=== PATIENT | male | born 1965 | race Caucasian/White ===

== ENCOUNTER 2021-05-06 18:38 | Observation (INO) ==
[2021-05-06 19:39] LABS: Mean Corpuscular Hgb Conc 34.6 g/dL (32-36); Mean Platelet Volume 10.2 fL (7.4-10.4); Platelet Count 196 K/uL (130-400)
[2021-05-06 19:41] LABS: Appearance Urine Clear (Clear); Bilirubin Urine Negative (Negative); Blood Urine Negative (Negative); Color Urine Yellow; Glucose Urine UA Negative (Negative); Ketones Urine 1+ (Negative); Leukocyte Esterase Urine Negative (Negative); Nitrite Urine Negative (Negative); Protein Urine Negative (Negative); Specific Gravity Urine 1.022 (1.000-1.030); Urobilinogen Urine Negative (Negative); pH Urine 5.5 (4.5-7.5)
[2021-05-06 19:57] LABS: Basophils # (auto) 0.02 K/uL (0-0.2); Basophils % (auto) 0.1 %; Eosinophils # (auto) 0.06 K/uL (0-0.5); Eosinophils % (auto) 0.4 %; Hematocrit (blood only) 45.1 % (42-52); Hemoglobin 15.6 g/dL (14.0-18.0); Immature Granulocytes # (auto) 0.03 K/uL (0.00-0.02); Immature Granulocytes % (auto) 0.2 %; Lymphocytes # (auto) 1.24 K/uL (1.2-3.4); Lymphocytes % (auto) 8.7 %; Mean Corpuscular Hemoglobin 30.7 pg (25-34); Mean Corpuscular Volume 88.8 fL (80-100); Monocytes # (auto) 0.83 K/uL (0.11-0.59); Monocytes % (auto) 5.9 %; Neutrophils % (auto) 84.7 %; RDW Coefficient of Variation 13.1 % (11.5-14.5); RDW Standard Deviation 42.7 fL (36.4-46.3); Red Blood Count 5.08 M/uL (4.7-6.1); White Blood Count 14.18 K/uL (4.8-10.8)
[2021-05-06 19:59] LABS: Albumin Globulin Ratio 1.5 (0.9-2); Albumin Level 4.3 gm/dl (3.4-5.0); BUN Creatinine Ratio 12.5 (10-20); Bilirubin,Total 0.5 mg/dl (0.2-1.0); Calcium 9.4 mg/dl (8.5-10.1); Creatinine Clr Calc Pharmacy 77.7 ml/min; Est GFR (African American) 77.9 ml/min; Est GFR (Non-African American) 67.2 ml/min; Globulin 2.9 gm/dl (2.5-4.0); Potassium 4.3 mmol/L (3.5-5.1); Total Protein 7.2 gm/dl (6.0-8.3)
[2021-05-06] MEDS ORDERED: ONDANSETRON INJ 2 MG/ML 2 ML VIAL IV STA ×2 (20:25→20:34)
[2021-05-06] MEDS ORDERED: KETOROLAC TROMETHAMINE 15 MG/ML VIAL IV STA (20:25)
[2021-05-06] MEDS ORDERED: OPTIRAY 320 100ml IV ONE (21:01)
--- NOTE | 2021-05-06 21:20 | CT Scan Report ---
CT abd pelvis IV con only CLINICAL HISTORY: rlq pain ro appy TECHNIQUE: Helical axial images of the abdomen and pelvis were obtained and displayed. Automated dose lowering techniques and/or adjustment according to patient size were utilized for this exam. This e xam was performed with intravenous contrast. COMPARISON: None available at the time of this dictation. FINDINGS: Lower chest: Bibasilar atelectasis versus scarring is seen. Liver: Subcentimeter hypodensities in the liver are too small to characterize. Gallbladder and biliary tree: No calcified gallstones. Normal caliber wall. No intra- or extrahepatic biliary ductal dilation. Pancreas: Unremarkable, no focal lesions. Spleen: Unremarkable. Adrenals: Unremarkable. Kidneys and ureters: A 22 mm cyst seen on the left. Bladder: Unremarkable. Reproductive organs: Prostatomegaly is seen. Bowel: The appendix is dilated measuring 11 mm in diameter. There is mild surrounding fat stranding. No evidence of abscess or perforation is seen. There is a small hiatal hernia. Lymph nodes Retroperitoneal: Unremarkable. Mesenteric: Unremarkable. Pelvic: Unremarkable. Peritoneum: Normal. Vessels: Unremarkable. Abdominal wall: Unremarkable. Bones: Unremarkable. IMPRESSION: Findings are compatible with acute appendicitis without evidence of abscess or perforation. ACT 112: Negative or not required by law. Electronically signed by: Amando Juárez M.D. 05/06/2021 9:19 PM
[2021-05-06] MEDS ORDERED: ACETAMINOPHEN 1,000 MG/100 ML VIAL IV STA (21:25)
[2021-05-06] MEDS ORDERED: ERTAPENEM SODIUM 10 ML IV STA (21:28)
--- NOTE | 2021-05-06 22:52 | History & Physical Report ---
Date of Service May 06, 2021 Assessment & Plan (1) Acute appendicitis with localized peritonitis without abscess: Plan: 56-year-old gentleman presents with acute appendicitis. I discussed the risks and benefits of laparoscopic appendectomy, possible open. All his questions were answered, he was agreeable to proceed. We will take him to the operating room at the earliest convenience. History of Present Illness Primary Care Provider: NO PCP 56-year-old gentleman presents with 1 day history of right lower quadrant pain. He developed a fever at approximately 12:00 this afternoon and right lower quadrant pain. He denies nausea or vomiting. He has had alternating constipation and diarrhea. He denies chest pain or shortness of breath. He last ate earlier this morning. He has never had surgery. CT scan demonstrates acute appendicitis. Allergies Allergy/AdvReac Type Severity Reaction Status Date / Time lactose AdvReac Gastrointestinal Verified 05/06/21 21:59 Upset Home Medications Medication Instructions Recorded Confirmed Type lactase 3,000 unit tablet 3,000 unit PO AC PRN 05/06/21 05/06/21 History multivitamin 1 tab PO DAILY 05/06/21 05/06/21 History Past Med/Surg History Medical History (Updated 05/06/21 @ 22:53 by Jv Rosenthal MD) No pertinent family history No pertinent past medical history Surgical History No pertinent past surgical history Social History Smoking Status: Never smoker Preferred Language: Danish Feels Safe at Home: Yes Review of Systems Review of Systems: All systems reviewed & are unremarkable except as noted in HPI & below Physical Exam Constitutional: WD/WN, vitals as above Neck: trachea midline, no thyromegaly Respiratory: normal respiratory effort, lungs clear to auscultation Cardiovascular: RRR, no murmur, no edema Gastrointestinal (Abdomen): Inspection/Auscultation: abdomen normal to inspection; abdomen not distended Percussion/Palpation: + abdomen tender (Right lower quadrant) and abdomen soft; no guarding and abdomen not rigid Musculoskeletal: Extremities: no cyanosis and no clubbing Skin: no rashes, warm and dry Psychiatric: A+Ox3, euthymic affect Results & Data Results & Data ([facility]) Vital Signs (Past 12 Hours) Vital Signs Temp Pulse Pulse Resp BP BP Pulse Ox 05/06/21 22:00 111 H 23 112/55 L 95 05/06/21 20:38 82 19 135/82 94 05/06/21 18:46 37.6 C H 93 H 20 118/84 94 Laboratory Results 05/06/21 05/06/21 05/06/21 Range/Units 21:33 19:28 19:28 WBC (4.8-10.8) K/uL RBC (4.7-6.1) M/uL Hgb (14.0-18.0) g/dL Hct (42-52) % MCV (80-100) fL MCH (25-34) pg MCHC (32-36) g/dL RDW Std Deviation (36.4-46.3) fL RDW Coeff of Terrence (11.5-14.5) % Plt Count (130-400) K/uL MPV (7.4-10.4) fL Immature Gran % (Auto) % Neut % (Auto) % Lymph % (Auto) % [place] % (Auto) % Eos % (Auto) % Baso % (Auto) % Neut # (Auto) (1.4-6.5) K/uL Lymph # (Auto) (1.2-3.4) K/uL [place] # (Auto) (0.11-0.59) K/uL Eos # (Auto) (0-0.5) K/uL Baso # (Auto) (0-0.2) K/uL Immature Gran # (Auto) (0.00-0.02) K/uL Sodium 137 (136-145) mmol/L Potassium 4.3 (3.5-5.1) mmol/L Chloride 103 (98-107) mmol/L Carbon Dioxide 27 (21-32) mmol/L Anion Gap 7 (3-11) BUN 15 (6-23) mg/dl Creatinine 1.20 (0.6-1.4) mg/dl Est Cr Clr Drug Dosing 77.7 ml/min Est GFR ( Amer) 77.9 ml/min Est GFR (Non-Af Amer) 67.2 ml/min BUN/Creatinine Ratio 12.5 (10-20) Glucose 107 H (70-99(Fasting)) mg/dl Calcium 9.4 (8.5-10.1) mg/dl Total Bilirubin 0.5 (0.2-1.0) mg/dl AST 21 (13-39) U/L ALT 25 (7-52) U/L Alkaline Phosphatase 62 (34-104) U/L Total Protein 7.2 (6.0-8.3) gm/dl Albumin 4.3 (3.4-5.0) gm/dl Globulin 2.9 (2.5-4.0) gm/dl Albumin/Globulin Ratio 1.5 (0.9-2) Lipase 11 (11-82) U/L Urine Color Yellow Urine Appearance Clear (Clear) Urine pH 5.5 (4.5-7.5) Ur Specific [place] 1.022 (1.000-1.030) Urine Protein Negative (Negative) Urine Glucose (UA) Negative (Negative) Urine Ketones 1+ H (Negative) Urine Blood Negative (Negative) Urine Nitrite Negative (Negative) Urine Bilirubin Negative (Negative) Urine Urobilinogen Negative (Negative) Ur Leukocyte Esterase Negative (Negative) SARS-CoV-2, RNA, NAAT NEGATIVE (NEGATIVE) 05/06/21 Range/Units 19:28 WBC 14.18 H (4.8-10.8) K/uL RBC 5.08 (4.7-6.1) M/uL Hgb 15.6 (14.0-18.0) g/dL Hct 45.1 (42-52) % MCV 88.8 (80-100) fL MCH 30.7 (25-34) pg MCHC 34.6 (32-36) g/dL RDW Std Deviation 42.7 (36.4-46.3) fL RDW Coeff of Terrence 13.1 (11.5-14.5) % Plt Count 196 (130-400) K/uL MPV 10.2 (7.4-10.4) fL Immature Gran % (Auto) 0.2 % Neut % (Auto) 84.7 % Lymph % (Auto) 8.7 % Meade % (Auto) 5.9 % Eos % (Auto) 0.4 % Baso % (Auto) 0.1 % Neut # (Auto) 12.00 H (1.4-6.5) K/uL Lymph # (Auto) 1.24 (1.2-3.4) K/uL [place] # (Auto) 0.83 H (0.11-0.59) K/uL Eos # (Auto) 0.06 (0-0.5) K/uL Baso # (Auto) 0.02 (0-0.2) K/uL Immature Gran # (Auto) 0.03 H (0.00-0.02) K/uL Sodium (136-145) mmol/L Potassium (3.5-5.1) mmol/L Chloride (98-107) mmol/L Carbon Dioxide (21-32) mmol/L Anion Gap (3-11) BUN (6-23) mg/dl Creatinine (0.6-1.4) mg/dl Est Cr Clr Drug Dosing ml/min Est GFR ( Amer) ml/min Est GFR (Non-Af Amer) ml/min BUN/Creatinine Ratio (10-20) Glucose (70-99(Fasting)) mg/dl Calcium (8.5-10.1) mg/dl Total Bilirubin (0.2-1.0) mg/dl AST (13-39) U/L ALT (7-52) U/L Alkaline Phosphatase (34-104) U/L Total Protein (6.0-8.3) gm/dl Albumin (3.4-5.0) gm/dl Globulin (2.5-4.0) gm/dl Albumin/Globulin Ratio (0.9-2) Lipase (11-82) U/L Urine Color Urine Appearance (Clear) Urine pH (4.5-7.5) Ur Specific [place] (1.000-1.030) Urine Protein (Negative) Urine Glucose (UA) (Negative) Urine Ketones (Negative) Urine Blood (Negative) Urine Nitrite (Negative) Urine Bilirubin (Negative) Urine Urobilinogen (Negative) Ur Leukocyte Esterase (Negative) SARS-CoV-2, RNA, NAAT (NEGATIVE) Diagnostic Findings CT abd pelvis IV con only CLINICAL HISTORY: rlq pain ro appy TECHNIQUE: Helical axial images of the abdomen and pelvis were obtained and displayed. Automated dose lowering techniques and/or adjustment according to patient size were utilized for this exam. This exam was performed with intravenous contrast. COMPARISON: None available at the time of this dictation. FINDINGS: Lower chest: Bibasilar atelectasis versus scarring is seen. Liver: Subcentimeter hypodensities in the liver are too small to characterize. Gallbladder and biliary tree: No calcified gallstones. Normal caliber wall. No intra- or extrahepatic biliary ductal dilation. Pancreas: Unremarkable, no focal lesions. Spleen: Unremarkable. Adrenals: Unremarkable. Kidneys and ureters: A 22 mm cyst seen on the left. Bladder: Unremarkable. Reproductive organs: Prostatomegaly is seen. Bowel: The appendix is dilated measuring 11 mm in diameter. There is mild surrounding fat stranding. No evidence of abscess or perforation is seen. There is a small hiatal hernia. Lymph nodes Retroperitoneal: Unremarkable. Mesenteric: Unremarkable. Pelvic: Unremarkable. Peritoneum: Normal. Vessels: Unremarkable. Abdominal wall: Unremarkable. Bones: Unremarkable. IMPRESSION: Findings are compatible with acute appendicitis without evidence of abscess or perforation.
--- NOTE | 2021-05-06 22:53 | Emergency Department Note ---
History of Present Illness General Chief Complaint: Abdominal Pain Stated Complaint: FEVER, CHILLS, SORENESS, THINKS ITS APPENDICITIS Time Seen by Provider: 05/06/21 20:23 History of Present Illness Provider Complaint: abdominal pain Onset (ago): 8 hour(s) Pain Consistency: constant Location: RLQ Radiation: none Severity: moderate Maximum Pain Intensity: 4 Current Pain Intensity: 4 Quality: + stabbing and + sharp Relieved By: + nothing Exacerbated By: + nothing Context: no foreign travel, no possible food poisoning, no sick contacts, no recent antibiotic use, no recent surgery/procedure or no recent injury Associated Symptoms: + nausea and + fever; no vomiting, no diarrhea, no chills, no constipation, no dysuria, no hematemesis, no hematochezia, no melena, no hematuria, no anorexia, no syncope, no headache, no neck pain, no back pain, no chest pain, no weakness, no breathing difficulty and no numbness Home Medications Medication Instructions Recorded Confirmed Type lactase 3,000 unit tablet 3,000 unit PO AC PRN 05/06/21 05/06/21 History multivitamin 1 tab PO DAILY 05/06/21 05/06/21 History Allergies Allergy/AdvReac Type Severity Reaction Status Date / Time lactose AdvReac Gastrointestinal Verified 05/06/21 21:59 Upset Past Med/Surg History Medical History No pertinent family history No pertinent past medical history Surgical History No pertinent past surgical history Social History Smoking Status: Never smoker Preferred Language: Thai Feels Safe at Home: Yes Review of Systems A total of 10 systems reviewed and were otherwise negative Physical Exam Vital Signs: Vital Signs - 24 hr 05/06/21 18:46 05/06/21 20:38 05/06/21 22:00 Temperature 37.6 C H Temperature Source Temporal Artery Sc an Pulse Rate 93 H Pulse Rate [Apical ] 82 111 H Pulse Rhythm Regular Pulse Rhythm [Apic al] Regular Pulse Strength Normal Respiratory Rate 20 19 23 Respiratory Effort / Characteristics Non-Labored Sponta neous Non-Labored Respiratory Depth Normal Respiratory Patter n Regular Blood Pressure 118/84 Blood Pressure [Le ft Arm] 135/82 112/55 L Blood Pressure Aracely n 95 Blood Pressure Aracely n [Left Arm] 99 74 Blood Pressure Pos ition Sitting Pulse Oximetry 94 94 95 Oxygen Delivery Me thod Room Air Room Air Room Air Sepsis Recent Feve r Within 48 Hours No Sepsis New/Unexpla ined Change in Men lex Status No Sepsis Action Take n by Nursing No Action Required Physical Exam: Physical Exam GENERAL: He is oriented to person, place, and time. He appears well-developed and well-nourished. He does not appear distressed. HENT: Exam performed. - Head: Normocephalic and atraumatic. - Right Ear: External ear normal. No mastoid tenderness. - Left Ear: External ear normal. No mastoid tenderness. - Mouth/Throat: The oropharynx is clear and moist. No trismus in the jaw. No dental abscesses or uvula swelling. No oropharyngeal exudate or tonsillar abscesses. EYES: Conjunctivae and EOM are normal. Pupils are equal, round, and reactive to light. Right eye exhibits no discharge. Left eye exhibits no discharge. No scleral icterus. NECK: Normal range of motion. Neck supple. No JVD present. No spinous process tenderness present. No carotid bruit present. No rigidity. No tracheal deviation and normal range of motion present. No Brudzinski's sign and no Kernig's sign no maria fernanda. CV: Normal rate, regular rhythm, normal heart sounds and intact distal pulses. There is no peripheral edema. Palpable radial pulses bue. PULM/CHEST: Effort normal and breath sounds normal. No respiratory distress. No stridor. He has no wheezes. He has no rales. - Chest Wall: He exhibits no tenderness. ABD: The abdomen is soft. Bowel sounds are normal. He has no distension. No mass is present. There is rebound, guarding, and tenderness at McBurney's point. Rovsig positive. MUSC/SKEL: Normal range of motion. There is no peripheral edema, tenderness or deformity. LYMPH: No cervical adenopathy. NEURO: He is alert and oriented to person, place, and time. He has normal strength. No cranial nerve deficit or sensory deficit. Coordination and gait normal. GCS eye subscore is 4. GCS verbal subscore is 5. GCS motor subscore is 6. Cerebellar tests wnl. SKIN: Skin is warm and dry. He is not diaphoretic. PSYCH: He has a normal mood and affect. Behavior is normal. Judgment and thought content normal. Course Course 2022: The patient was evaluated in room B11. A complete history and physical exam was performed Cardiac monitoring: An order was placed for continuous cardiac monitoring. The monitor shows a rate of 100 with sinus rhythm 2130: Vital signs stable. Labs show leukocytosis of 14. CT shows appendicitis. Discussed the case with Dr. Rosenthal who states he will come down to evaluate the patient. Antibiotics and antibiotics ordered for the patient. Administered Medications Discontinued Medications Acetaminophen (Ofirmev) 1,000 mg in 100 mls @ 400 mls/hr IV NOW STA Stop: 05/06/21 21:39 Last Infusion: 05/06/21 22:15 Dose: 0 mls/hr Documented by: [id number] Admin: 05/06/21 21:37 Dose: 400 mls/hr Documented by: [id number] Ertapenem (Invanz) 10 mls @ 2 mls/min IV NOW STA Stop: 05/06/21 21:32 Last Admin: 05/06/21 21:37 Dose: 2 mls/min Documented by: [id number] Ioversol (Optiray 320 100ml) 91 ml IV ONCE ONE Stop: 05/06/21 21:02 Last Admin: 05/06/21 21:01 Dose: 91 ml Documented by: [id number] Ketorolac Tromethamine (Ketorolac Tromethamine 15 Mg/Ml Vial) 15 mg IV NOW STA Stop: 05/06/21 20:26 Last Admin: 05/06/21 20:41 Dose: Not Given Documented by: [id number] Ondansetron HCl (Ondansetron Inj 2 Mg/Ml 2 Ml Vial) 4 mg IV NOW STA Stop: 05/06/21 20:26 Last Admin: 05/06/21 20:41 Dose: Not Given Documented by: [id number] Ondansetron HCl (Ondansetron Inj 2 Mg/Ml 2 Ml Vial) 4 mg IV NOW STA Stop: 05/06/21 20:35 Last Admin: 05/06/21 20:42 Dose: Not Given Documented by: [id number] Medical Decision Making Laboratory Data Result diagrams: 05/06/21 19:28 05/06/21 19:28 Lab Results 05/06/21 05/06/21 05/06/21 Range/Units 19:28 19:28 19:28 WBC 14.18 H (4.8-10.8) K/uL RBC 5.08 (4.7-6.1) M/uL Hgb 15.6 (14.0-18.0) g/dL Hct 45.1 (42-52) % MCV 88.8 (80-100) fL MCH 30.7 (25-34) pg MCHC 34.6 (32-36) g/dL RDW Std Deviation 42.7 (36.4-46.3) fL RDW Coeff of Terrence 13.1 (11.5-14.5) % Plt Count 196 (130-400) K/uL MPV 10.2 (7.4-10.4) fL Immature Gran % (Auto) 0.2 % Neut % (Auto) 84.7 % Lymph % (Auto) 8.7 % [place] % (Auto) 5.9 % Eos % (Auto) 0.4 % Baso % (Auto) 0.1 % Neut # (Auto) 12.00 H (1.4-6.5) K/uL Lymph # (Auto) 1.24 (1.2-3.4) K/uL Grant # (Auto) 0.83 H (0.11-0.59) K/uL Eos # (Auto) 0.06 (0-0.5) K/uL Baso # (Auto) 0.02 (0-0.2) K/uL Immature Gran # (Auto) 0.03 H (0.00-0.02) K/uL Sodium 137 (136-145) mmol/L Potassium 4.3 (3.5-5.1) mmol/L Chloride 103 (98-107) mmol/L Carbon Dioxide 27 (21-32) mmol/L Anion Gap 7 (3-11) BUN 15 (6-23) mg/dl Creatinine 1.20 (0.6-1.4) mg/dl Est Cr Clr Drug Dosing 77.7 ml/min Est GFR ( Amer) 77.9 ml/min Est GFR (Non-Af Amer) 67.2 ml/min BUN/Creatinine Ratio 12.5 (10-20) Glucose 107 H (70-99(Fasting)) mg/dl Calcium 9.4 (8.5-10.1) mg/dl Total Bilirubin 0.5 (0.2-1.0) mg/dl AST 21 (13-39) U/L ALT 25 (7-52) U/L Alkaline Phosphatase 62 (34-104) U/L Total Protein 7.2 (6.0-8.3) gm/dl Albumin 4.3 (3.4-5.0) gm/dl Globulin 2.9 (2.5-4.0) gm/dl Albumin/Globulin Ratio 1.5 (0.9-2) Lipase 11 (11-82) U/L Urine Color Yellow Urine Appearance Clear (Clear) Urine pH 5.5 (4.5-7.5) Ur Specific [place] 1.022 (1.000-1.030) Urine Protein Negative (Negative) Urine Glucose (UA) Negative (Negative) Urine Ketones 1+ H (Negative) Urine Blood Negative (Negative) Urine Nitrite Negative (Negative) Urine Bilirubin Negative (Negative) Urine Urobilinogen Negative (Negative) Ur Leukocyte Esterase Negative (Negative) SARS-CoV-2, RNA, NAAT (NEGATIVE) 05/06/21 Range/Units 21:33 WBC (4.8-10.8) K/uL RBC (4.7-6.1) M/uL Hgb (14.0-18.0) g/dL Hct (42-52) % MCV (80-100) fL MCH (25-34) pg MCHC (32-36) g/dL RDW Std Deviation (36.4-46.3) fL RDW Coeff of Terrence (11.5-14.5) % Plt Count (130-400) K/uL MPV (7.4-10.4) fL Immature Gran % (Auto) % Neut % (Auto) % Lymph % (Auto) % [place] % (Auto) % Eos % (Auto) % Baso % (Auto) % Neut # (Auto) (1.4-6.5) K/uL Lymph # (Auto) (1.2-3.4) K/uL [place] # (Auto) (0.11-0.59) K/uL Eos # (Auto) (0-0.5) K/uL Baso # (Auto) (0-0.2) K/uL Immature Gran # (Auto) (0.00-0.02) K/uL Sodium (136-145) mmol/L Potassium (3.5-5.1) mmol/L Chloride (98-107) mmol/L Carbon Dioxide (21-32) mmol/L Anion Gap (3-11) BUN (6-23) mg/dl Creatinine (0.6-1.4) mg/dl Est Cr Clr Drug Dosing ml/min Est GFR ( Amer) ml/min Est GFR (Non-Af Amer) ml/min BUN/Creatinine Ratio (10-20) Glucose (70-99(Fasting)) mg/dl Calcium (8.5-10.1) mg/dl Total Bilirubin (0.2-1.0) mg/dl AST (13-39) U/L ALT (7-52) U/L Alkaline Phosphatase (34-104) U/L Total Protein (6.0-8.3) gm/dl Albumin (3.4-5.0) gm/dl Globulin (2.5-4.0) gm/dl Albumin/Globulin Ratio (0.9-2) Lipase (11-82) U/L Urine Color Urine Appearance (Clear) Urine pH (4.5-7.5) Ur Specific [place] (1.000-1.030) Urine Protein (Negative) Urine Glucose (UA) (Negative) Urine Ketones (Negative) Urine Blood (Negative) Urine Nitrite (Negative) Urine Bilirubin (Negative) Urine Urobilinogen (Negative) Ur Leukocyte Esterase (Negative) SARS-CoV-2, RNA, NAAT NEGATIVE (NEGATIVE) Imaging Data Radiologist's Impression: Abdomen/Pelvis CT 05/06/21 20:25 CT abd pelvis IV con only CLINICAL HISTORY: rlq pain ro appy TECHNIQUE: Helical axial images of the abdomen and pelvis were obtained and displayed. Automated dose lowering techniques and/or adjustment according to patient size were utilized for this exam. This exam was performed with intravenous contrast. COMPARISON: None available at the time of this dictation. FINDINGS: Lower chest: Bibasilar atelectasis versus scarring is seen. Liver: Subcentimeter hypodensities in the liver are too small to characterize. Gallbladder and biliary tree: No calcified gallstones. Normal caliber wall. No intra- or extrahepatic biliary ductal dilation. Pancreas: Unremarkable, no focal lesions. Spleen: Unremarkable. Adrenals: Unremarkable. Kidneys and ureters: A 22 mm cyst seen on the left. Bladder: Unremarkable. Reproductive organs: Prostatomegaly is seen. Bowel: The appendix is dilated measuring 11 mm in diameter. There is mild panchito rounding fat stranding. No evidence of abscess or perforation is seen. There is a small hiatal hernia. Lymph nodes Retroperitoneal: Unremarkable. Mesenteric: Unremarkable. Pelvic: Unremarkable. Peritoneum: Normal. Vessels: Unremarkable. Abdominal wall: Unremarkable. Bones: Unremarkable. IMPRESSION: Findings are compatible with acute appendicitis without evidence of abscess or perforation. ACT 112: Negative or not required by law. Electronically signed by: Amando Juárez M.D. 05/06/2021 9:19 PM MDM Narrative Vital signs stable. Labs show leukocytosis of 14. CT shows appendicitis. Discussed the case with Dr. Rosenthal who states he will come down to evaluate the patient. Antibiotics and antibiotics ordered for the patient. Impression & Plan Acute appendicitis Discharge Plan Visit Data Chief Complaint: Abdominal Pain Stated Complaint: FEVER, CHILLS, SORENESS, THINKS ITS APPENDICITIS Discharge Problem: Acute appendicitis Patient Disposition: Being Evaluated by Surgeon Forms Stand Alone Forms: [facility] Narciso P[facility] [place] Prescriptions Prescriptions: No Action multivitamin Tablet 1 tab PO DAILY RF: 0 lactase [Dairy Ease] 3,000 unit Tablet 3,000 unit PO AC PRN (Reason: Lactose intolerant) RF: 0 Referrals Referrals: PCP,NO [Primary Care Provider] -
[2021-05-06] MEDS: LACTATED RINGER'S 1,000 ML IV SCH (23:10)
[2021-05-07] MEDS ORDERED: EPINEPHrine INJ 1 MG/ML AMP ONE (00:14)
[2021-05-07] MEDS ORDERED: BUPIVACAINE 0.5 % 5 MG/1 ML MPF 30ML VIAL ONE (00:14)
[2021-05-07] MEDS ORDERED: fentaNYL citrate 100 MCG/2 ML VIAL ONE ×2 (01:25)
[2021-05-07] MEDS ORDERED: MIDAZOLAM HCL 1 MG/ML 2ML VIAL ONE (01:25)
[2021-05-07] MEDS ORDERED: ePHEDrine sulfate 50 MG/ML AMP IV PRN (01:29)
[2021-05-07] MEDS ORDERED: ONDANSETRON INJ 2 MG/ML 2 ML VIAL IV PRN ×2 (01:29→03:52)
[2021-05-07] MEDS ORDERED: HYDROmorphone INJ 1 MG/ML SYRINGE IV PRN (01:29)
[2021-05-07] MEDS ORDERED: ATROPINE SULFATE 0.1 MG/ML 10ML SYR IV PRN (01:29)
[2021-05-07] MEDS ORDERED: fentaNYL citrate 100 MCG/2 ML VIAL IV PRN (01:29)
--- NOTE | 2021-05-07 01:33 | Anesthesiology Consultation ---
Date of Service May 07, 2021 Assessment & Plan (1) Encounter for pre-operative examination: Chart Review Chart Review: Acceptable Risk for Surgery and Patient NOT seen in Pre Admission Testing Consults Requested none History Surgery Operation Date: 05/07/21 00:30 Proposed Procedures p Laparoscopic Appendectomy - Jv Rosenthal MD Height/Weight Height: 6 ft 1 in Weight: 92.3 kg Allergies Allergy/AdvReac Type Severity Reaction Status Date / Time lactose AdvReac Gastrointestinal Verified 05/06/21 21:59 Upset Medications Home Medications Medication Instructions Recorded Confirmed Last Taken lactase 3,000 unit tablet 3,000 unit PO AC PRN 05/06/21 05/06/21 Unknown multivitamin 1 tab PO DAILY 05/06/21 05/06/21 Unknown Active Medications Generic Name Dose Route Start Last Admin Trade Name Freq PRN Reason Stop Dose Admin Lactated Ringer's 1,000 mls @ 125 mls/hr 05/06/21 23:00 05/06/21 23:10 Lr IV 06/05/21 22:59 125 mls/hr .Q8H MIRE[place]LE Administration NPO Date Last Intake of Fluids: 05/06/21 Time Last Intake of Fluids: 18:00 Last Intake of Fluids Comment: Sips of water Date Last Intake of Solids: 05/06/21 Time Last Intake of Solids: 12:00 Past Medical History Medical History No pertinent family history No pertinent past medical history Exercise / Class Metabolic Activity 1 > 8 Run/Swim/Ski/Tennis Past Surgical History Surgical History No pertinent past surgical history Past Anesthesia History No Hx of Anesthesia Complications and No Family Hx of Anesthesia Complications Social History Smoking Status: Never smoker Physical Exam Vital Signs Last Vital Signs Temp 37.6 C H 05/06/21 18:46 Pulse 110 H 05/06/21 23:54 Resp 25 H 05/06/21 23:54 BP 95/48 L 05/06/21 23:54 Pulse Ox 96 05/06/21 23:54 Testing Laboratory Results 05/06/21 19:28 05/06/21 19:28 Urine Color Yellow 05/06/21 19:28 Urine Appearance Clear (Clear) 05/06/21 19:28 Urine pH 5.5 (4.5-7.5) 05/06/21 19:28 Ur Specific [place] 1.022 (1.000-1.030) 05/06/21 19:28 Urine Protein Negative (Negative) 05/06/21 19:28 Urine Glucose (UA) Negative (Negative) 05/06/21 19: Urine Ketones 1+ (Negative) H 05/06/21 19:28 Urine Nitrite Negative (Negative) 05/06/21 19: Ur Leukocyte Esterase Negative (Negative) 05/06/21 19:28
[2021-05-07] MEDS ORDERED: ROCURONIUM BROMIDE 10 MG/ML 5 ML VIAL IV ONE (02:20)
[2021-05-07] MEDS ORDERED: GLYCOPYRROLATE 0.2 MG/ML VIAL ONE (02:20)
[2021-05-07] MEDS ORDERED: PHENYLEPHRINE 100MCG/ML 5ML SYR ONE (02:20)
[2021-05-07] MEDS ORDERED: NEOSTIGMINE METHYLSULFATE 1 MG/ML 10ML VIAL ONE (02:20)
[2021-05-07] MEDS ORDERED: DEXAMETHASONE SOD INJ 4 MG/ML VIAL ONE (02:20)
[2021-05-07] MEDS ORDERED: SUCCINYLCHOLINE 100MG/5ML SYR IV ONE (02:20)
[2021-05-07] MEDS ORDERED: PROPOFOL IV EMULSION 10 MG/ML 20 ML VIAL IV ONE (02:20)
[2021-05-07] MEDS ORDERED: ePHEDrine sulfate 50 MG/ML SYR ONE (02:20)
--- NOTE | 2021-05-07 02:41 | Post Operative Brief Note ---
Immediate Post Op Note v1 Date of Surgery May 07, 2021 Pre & Post Diagnosis Operation Date: 05/07/21 00:30 Pre-Op Diagnosis: Acute appendicitis Post-Op Diagnosis: Acute appendicitis I identified the patient and participated in the time-out.: Yes Procedure Operation Date: 05/07/21 00:30 Actual Procedures p Laparoscopic Appendectomy - Jv Rosenthal MD Surgeon Jv Rosenthal MD Sawyer Helper none Estimated Blood Loss 5 Findings Consistent with Post-Op Diagnosis
--- NOTE | 2021-05-07 02:42 | Operative Report ---
Post Operative Report Pre & Post Diagnosis Operation Date: 05/07/21 00:30 Pre-Op Diagnosis: Acute appendicitis Post-Op Diagnosis: Acute appendicitis I identified the patient and participated in the time-out.: Yes Procedure Operation Date: 05/07/21 00:30 Actual Procedures p Laparoscopic Appendectomy - Jv Rosenthal MD Surgeon Jv Rosenthal MD Stave Block Splitter none Estimated Blood Loss 5 Findings Consistent with Post-Op Diagnosis Acute appendicitis Specimens Appendix Anesthesia Type General Complications No immediate complications Description of Procedure The patient was taken to the operating room, and placed supine on the operating table. A timeout was performed, perioperative antibiotics were administered, SCD boots were placed. After adequate anesthesia and analgesia was obtained, the abdomen was prepped and draped in the normal sterile fashion. A 1 cm incision was made in the supraumbilical region and carried down to the level of the fascia. A trach hook was used to grasp the fascia and elevated and a varies needle was used to enter the abdominal cavity. The abdomen was insufflated to a pressure of 15 mmHg, and a 5 mm trocar was placed in this location. A 5 mm 30 degree laparoscope was placed into the abdominal cavity, and the abdomen was surveyed. The patient was placed in Trendelenburg and slightly to the left. One 5 mm trocar was placed in the right upper quadrant, and one 12 mm trocar was placed in the left lower quadrant under direct visualization. The right colon was identified and traced down to the cecum. The appendix was identified and elevated anteriorly and medially. A window was created at the base of the appendix with a [place] dissector. The Endo BRITTNEY stapler was used to transect the appendix at its base through noninflamed tissue, and subsequently the mesoappendix. The appendix was placed in an Endo Catch bag, and removed via the left lower quadrant port site. Attention was turned to hemostasis, which was excellent. The abdomen was copiously irrigated and suctioned free, and again hemostasis was found to be excellent. All trochars removed under direct visualization. The abdomen was desufflated. The fascia in the 12 mm port site was closed with a 0 Vicryl suture. The skin was closed with a running 4-0 Monocryl subcuticular stitch. Dermabond was applied. The patient tolerated the procedure without complication, and was transferred in stable condition to the PACU. All instrument, needle, and sponge counts were correct at the end of the case. I attest to the content of the Intraoperative Record and any orders documented therein. Any exceptions are noted below.
--- NOTE | 2021-05-07 03:00 | Anesthesiology Progress Note ---
Date of Service May 07, 2021 Anesthesia Post Procedure Vital Signs Vital Signs: Temp Pulse Pulse Resp BP BP Pulse Ox 05/07/21 02:55 93 H 14 105/62 93 05/07/21 02:46 36.6 C 107 H 18 108/69 94 05/06/21 23:54 110 H 25 H 95/48 L 96 05/06/21 22:00 111 H 23 112/55 L 95 05/06/21 20:38 82 19 135/82 94 05/06/21 18:46 37.6 C H 93 H 20 118/84 94 Pain Intensity Right Lower Abdomen: Pain Intensity: 5 Transfer of Care Handoff Completed per policy Notes Mental Status: alert / awake / arousable and participated in evaluation Patient Amnestic to Procedure: Yes Nausea / Vomiting: adequately controlled Pain: adequately controlled Airway Patency, RR, SpO2: stable & adequate BP & HR: stable & adequate Hydration State: stable & adequate Anesthetic Complications: no major complications apparent and Pt Satisfied with anesthetic care
[2021-05-07] MEDS ORDERED: oxyCODONE/ACETAMINOPHEN 5mg/325mg TAB PO PRN (03:52)
[2021-05-07] MEDS ORDERED: KETOROLAC 30 MG/ML VIAL IV PRN (03:52)
[2021-05-07] MEDS ORDERED: MoRPHine SULFATE 2 MG/ML CARP IV PRN (03:52)
[2021-05-07] MEDS ORDERED: PROMETHAZINE HCL 12.5 MG in SODIUM CHLORIDE 0.9% 50 ML IV PRN (03:52)
[2021-05-07] MEDS ORDERED: diphenhydrAMINE 50 MG/ML VIAL IV PRN (03:52)
[2021-05-07] MEDS: ENOXAPARIN INJ 40 MG/0.4 ML SYR SQ SCH (08:49)
--- NOTE | 2021-05-07 09:28 | Surgery Progress Note ---
Date of Service May 07, 2021 Assessment & Plan (1) Acute appendicitis with localized peritonitis without abscess: Plan: Postoperative day 1 status post laparoscopic appendectomy. He is doing very well. We will advance his diet as tolerated. His pain is under control. We will plan for discharge to home later on today. He will return to clinic in 2 weeks for follow-up. Admission and Anticipated Discharge Date Admission Date: May 07, 2021 Subjective Postoperative day 1 status post laparoscopic appendectomy. He is doing well. He is tolerating a clear liquid diet. He denies pain or fevers. Physical Exam Constitutional: WD/WN, vitals as above Neck: trachea midline, no thyromegaly Gastrointestinal (Abdomen): Inspection/Auscultation: abdomen normal to inspection and + abdominal surgical incision (Dermabond in place, healing without erythema or discharge); abdomen not distended Percussion/Palpation: + abdomen tender (Mild tenderness to palpation right lower quadrant) and abdomen soft; no guarding and abdomen not rigid Musculoskeletal: Extremities: no cyanosis and no clubbing Skin: no rashes, warm and dry Psychiatric: A+Ox3, euthymic affect Results & Data ([facility]) Vital Signs (Past 12 Hours) Vital Signs Temp Pulse Pulse Resp BP Pulse Ox Pulse Ox 05/07/21 07:00 37.1 C 88 16 99/62 L 94 05/07/21 06:06 37 C 80 16 100/62 94 05/07/21 05:54 37.1 C 84 20 99/61 L 93 05/07/21 04:55 37.3 C 81 16 95/59 L 92 05/07/21 04:25 36.9 C 79 14 95/56 L 91 05/07/21 03:55 37.4 C 83 15 98/61 L 94 94 05/07/21 03:25 36.9 C 79 12 97/59 L 93 05/07/21 03:15 82 14 91/57 L 93 05/07/21 03:05 89 18 97/59 L 93 05/07/21 02:55 93 H 14 105/62 93 05/07/21 02:46 36.6 C 107 H 18 108/69 94 05/06/21 23:54 110 H 25 H 95/48 L 96 05/06/21 22:00 111 H 23 112/55 L 95
[2021-05-07] MEDS: LACTATED RINGER'S 1,000 ML IV SCH ×2 (10:33→18:47)
[2021-05-07] MEDS: ACETAMINOPHEN 325 MG TAB PO PRN ×2 (15:40→21:54)
[2021-05-07] MEDS ORDERED: ACETAMINOPHEN 325 MG TAB PO PRN (22:37)
--- NOTE | 2021-05-07 22:38 | Surgery Progress Note ---
Date of Service May 07, 2021 Assessment & Plan (1) Acute appendicitis with localized peritonitis without abscess: Plan: Postoperative day 1 status post laparoscopic appendectomy pt develops fever and chills, Plan, sent UA, urine culture, blood culture, start cefexitin iv 1000mg q6h, tylenol 650 mg po q6h prn for T > 38, repeat labs in morning, will F/U Plan: Postoperative day 1 status post laparoscopic appendectomy. He is doing very well. We will advance his diet as tolerated. His pain is under control. We will plan for discharge to home later on today. He will return to clinic in 2 w [facility] for follow-up. Admission and Anticipated Discharge Date Admission Date: May 07, 2021 Subjective Postoperative day 1 status post laparoscopic appendectomy. He is doing well. He is tolerating a clear liquid diet. He denies pain or fevers. 05/07/2021 10:30PM DR. Robles, Postoperative day 1 status post laparoscopic appendectomy, nurse report pt has fever and chills, T 102.5, I checked pt at bed side, pt said only left abdomen incision site pain, no nausea, no vomiting, Physical Exam Constitutional: WD/WN, vitals as above Eyes: PERRL, conjunctivae normal, anicteric sclerae Neck: trachea midline, no thyromegaly Respiratory: normal respiratory effort, lungs clear to auscultation Cardiovascular: RRR, no murmur, no edema Gastrointestinal (Abdomen): soft, mild tenderness at left abdomen incision site, no rebound pain, no distend, incision intact, BS + Musculoskeletal: no cyanosis or clubbing, extremities motor strength 5/5 Neurologic: patellar DTR's 2+ bilat, sensation intact Psychiatric: A+Ox3, euthymic affect Results & Data ([facility]) Vital Signs (Past 12 Hours) Vital Signs Temp Pulse Resp BP Pulse Ox 05/07/21 22:20 39.4 C H 120 H 16 121/68 91 05/07/21 20:28 37.5 C 80 16 104/59 L 94 05/07/21 15:35 37.7 C H 88 16 123/74 96
[2021-05-08 03:03] LABS: Appearance Urine Clear (Clear); Bacteria Urine Automated Negative (Negative); Bilirubin Urine Negative (Negative); Blood Urine Negative (Negative); Cast Urine Automated 0 /lpf (0-5); Color Urine Yellow; Glucose Urine UA Negative (Negative); Ketones Urine Negative (Negative); Leukocyte Esterase Urine Negative (Negative); Nitrite Urine Negative (Negative); Protein Urine Trace (Negative); RBC Urine Automated 0-4 /hpf (0-4); Specific Gravity Urine 1.013 (1.000-1.030); Urobilinogen Urine Negative (Negative)
[2021-05-08] MEDS: LACTATED RINGER'S 1,000 ML IV SCH ×3 (05:40→16:29)
--- NOTE | 2021-05-08 08:27 | Surgery Progress Note ---
Date of Service May 08, 2021 Assessment & Plan (1) Acute appendicitis with localized peritonitis without abscess: (2) Rigors: (3) Fever and chills: Plan: POD # 1 s/p laparoscopic appendectomy - Tmax of 39.4 last evening, 38 this am - blood cultures and urine cultures pending, UA wnl - Abdominal pain controlled, abdomen soft, + flatus - leukocytosis resolved Plan: Will stop Cefoxitin and start IV Zosyn Continue po pain management continue regular diet up to chair and ambulate today await blood cultures SCDs and lovenox for DVT prophylaxis Incentive spirometry Dr. Rosenthal has seen and examined pt, agrees with above. Admission and Anticipated Discharge Date Admission Date: May 07, 2021 Subjective temperature was 102 last night gave tylenol and started antibiotics pain controlled, had narcotic pain medication last night blood cultures were drawn + nausea and heartburn this am no vomiting did not eat much last night for dinner urinating fine Physical Exam Constitutional: WD/WN, vitals as above no acute distress patient not in distress but having active rigors, multiple blankets on given chills and feeling cold. Able to have conversation with ease. Neck: normal visual inspection and trachea midline Respiratory: normal respiratory effort, lungs clear to auscultation no respiratory distress, no labored breathing and no retractions Cardiovascular: Rate/Rhythm: + tachycardic Gastrointestinal (Abdomen): Inspection/Auscultation: abdomen normal to inspection and + abdominal surgical incision (clean,dry,intact); abdomen not distended Percussion/Palpation: + abdomen tender (LLQ incision , appropriate postop) and abdomen soft; no guarding, abdomen not rigid and abdomen not firm Skin: no rashes, warm and dry no jaundice Psychiatric: Orientation: alert and oriented x 3 Results & Data ([facility]) Vital Signs (Past 12 Hours) Vital Signs Temp Pulse Resp BP Pulse Ox Pulse Ox 05/08/21 07:38 38 C H 90 18 129/81 92 05/08/21 03:52 94 05/08/21 03:31 92 05/08/21 02:25 36.6 C 69 16 106/66 98 05/07/21 22:20 39.4 C H 120 H 16 121/68 91 05/07/21 20:28 37.5 C 80 16 104/59 L 94 Laboratory Results 05/08/21 05/08/2122 Range/Units Unknown 08:17 08:17 WBC 5.40 (4.8-10.8) K/uL RBC 4.60 L (4.7-6.1) M/uL Hgb 13.8 L (14.0-18.0) g/dL Hct 41.4 L (42-52) % MCV 90.0 (80-100) fL MCH 30.0 (25-34) pg MCHC 33.3 (32-36) g/dL RDW Std Deviation 44.7 (36.4-46.3) fL RDW Coeff of Terrence 13.6 (11.5-14.5) % Plt Count 109 L (130-400) K/uL MPV 10.4 (7.4-10.4) fL Immature Gran % (Auto) 0.2 % Neut % (Auto) 81.3 % Lymph % (Auto) 8.1 % Kay % (Auto) 9.3 % Eos % (Auto) 0.9 % Baso % (Auto) 0.2 % Neut # (Auto) 4.39 (1.4-6.5) K/uL Lymph # (Auto) 0.44 L (1.2-3.4) K/uL Kay # (Auto) 0.50 (0.11-0.59) K/uL Eos # (Auto) 0.05 (0-0.5) K/uL Baso # (Auto) 0.01 (0-0.2) K/uL Immature Gran # (Auto) 0.01 (0.00-0.02) K/uL Sodium 137 (136-145) mmol/L Potassium 4.1 (3.5-5.1) mmol/L Chloride 105 (98-107) mmol/L Carbon Dioxide 26 (21-32) mmol/L Anion Gap 6 (3-11) BUN 16 (6-23) mg/dl Creatinine 1.15 (0.6-1.4) mg/dl Est Cr Clr Drug Dosing 81.1 ml/min Est GFR ( Amer) 82.0 ml/min Est GFR (Non-Af Amer) 70.7 ml/min BUN/Creatinine Ratio 13.9 (10-20) Glucose 110 H (70-99(Fasting)) mg/dl Calcium 7.5 L (8.5-10.1) mg/dl Total Bilirubin 1.5 H D (0.2-1.0) mg/dl AST 261 H (13-39) U/L ALT 237 H (7-52) U/L Alkaline Phosphatase 80 (34-104) U/L Total Protein 5.7 L D (6.0-8.3) gm/dl Albumin 3.3 L (3.4-5.0) gm/dl Globulin 2.4 L (2.5-4.0) gm/dl Albumin/Globulin Ratio 1.4 (0.9-2) Urine Color Yellow Urine Appearance Clear (Clear) Urine pH 6.0 (4.5-7.5) Ur Specific [place] 1.013 (1.000-1.030) Urine Protein Trace H (Negative) Urine Glucose (UA) Negative (Negative) Urine Ketones Negative (Negative) Urine Blood Negative (Negative) Urine Nitrite Negative (Negative) Urine Bilirubin Negative (Negative) Urine Urobilinogen Negative (Negative) Ur Leukocyte Esterase Negative (Negative) Urine WBC (Auto) 1-5 (0-5) /hpf Urine RBC (Auto) 0-4 (0-4) /hpf U Hyaline Cast (Auto) 0 (0-5) /lpf U Epithel Cells (Auto) 5-10 H (0-5) /lpf Urine Bacteria (Auto) Negative (Negative)
[2021-05-08 08:39] LABS: Basophils # (auto) 0.01 K/uL (0-0.2); Basophils % (auto) 0.2 %; Eosinophils # (auto) 0.05 K/uL (0-0.5); Eosinophils % (auto) 0.9 %; Hematocrit (blood only) 41.4 % (42-52); Hemoglobin 13.8 g/dL (14.0-18.0); Immature Granulocytes # (auto) 0.01 K/uL (0.00-0.02); Immature Granulocytes % (auto) 0.2 %; Lymphocytes # (auto) 0.44 K/uL (1.2-3.4); Lymphocytes % (auto) 8.1 %; Mean Corpuscular Hgb Conc 33.3 g/dL (32-36); Mean Platelet Volume 10.4 fL (7.4-10.4); Monocytes % (auto) 9.3 %; Neutrophils # (auto) 4.39 K/uL (1.4-6.5); Neutrophils % (auto) 81.3 %; Platelet Count 109 K/uL (130-400); RDW Coefficient of Variation 13.6 % (11.5-14.5); RDW Standard Deviation 44.7 fL (36.4-46.3)
[2021-05-08] MEDS: ENOXAPARIN INJ 40 MG/0.4 ML SYR SQ SCH ×2 (09:40→09:51)
[2021-05-08] MEDS: ACETAMINOPHEN 325 MG TAB PO PRN ×2 (09:40→16:47)
[2021-05-08 09:46] LABS: Albumin Globulin Ratio 1.4 (0.9-2); Albumin Level 3.3 gm/dl (3.4-5.0); BUN Creatinine Ratio 13.9 (10-20); Bilirubin,Total 1.5 mg/dl (0.2-1.0); Calcium 7.5 mg/dl (8.5-10.1); Creatinine Clr Calc Pharmacy 81.1 ml/min; Est GFR (Non-African American) 70.7 ml/min; Globulin 2.4 gm/dl (2.5-4.0); Potassium 4.1 mmol/L (3.5-5.1); Total Protein 5.7 gm/dl (6.0-8.3)
[2021-05-08] MEDS ORDERED: PIPERACILL/TAZOBAC CONSULT ACTIVE PRN (10:08)
[2021-05-08] MEDS ORDERED: PROMETHAZINE HCL 12.5 MG in SODIUM CHLORIDE 0.9% 50 ML IV PRN (10:08)
[2021-05-08] MEDS: FAMOTIDINE 20 MG in SYRINGE 3 ML IV SCH (10:24)
[2021-05-08] MEDS ORDERED: PIPERACILLIN/TAZOBACTAM 3.375 GM in DEXTROSE 5% 100 ML IV ONE (10:30)
[2021-05-08] MEDS: PIPERACILLIN/TAZOBACTAM 3.375 GM in DEXTROSE 5% 100 ML IV SCH (16:40)
[2021-05-09] MEDS: PIPERACILLIN/TAZOBACTAM 3.375 GM in DEXTROSE 5% 100 ML IV SCH ×3 (00:17→16:10)
[2021-05-09 07:04] LABS: Basophils # (auto) 0.01 K/uL (0-0.2); Basophils % (auto) 0.2 %; Eosinophils # (auto) 0.15 K/uL (0-0.5); Eosinophils % (auto) 3.7 %; Hematocrit (blood only) 41.1 % (42-52); Hemoglobin 13.8 g/dL (14.0-18.0); Lymphocytes # (auto) 0.48 K/uL (1.2-3.4); Lymphocytes % (auto) 11.7 %; Mean Corpuscular Hemoglobin 29.9 pg (25-34); Mean Corpuscular Hgb Conc 33.6 g/dL (32-36); Mean Platelet Volume 10.3 fL (7.4-10.4); Monocytes # (auto) 0.36 K/uL (0.11-0.59); Monocytes % (auto) 8.8 %; Neutrophils # (auto) 3.09 K/uL (1.4-6.5); Neutrophils % (auto) 75.6 %; Platelet Count 107 K/uL (130-400); RDW Coefficient of Variation 13.4 % (11.5-14.5); RDW Standard Deviation 44.2 fL (36.4-46.3); Red Blood Count 4.62 M/uL (4.7-6.1); White Blood Count 4.09 K/uL (4.8-10.8)
[2021-05-09 07:25] LABS: Albumin Globulin Ratio 1.3 (0.9-2); Albumin Level 3.3 gm/dl (3.4-5.0); BUN Creatinine Ratio 9.2 (10-20); Bilirubin,Total 1.5 mg/dl (0.2-1.0); Calcium 7.5 mg/dl (8.5-10.1); Creatinine Clr Calc Pharmacy 77.7 ml/min; Est GFR (African American) 77.9 ml/min; Est GFR (Non-African American) 67.2 ml/min; Globulin 2.5 gm/dl (2.5-4.0); Potassium 3.8 mmol/L (3.5-5.1); Total Protein 5.8 gm/dl (6.0-8.3)
[2021-05-09] MEDS: ACETAMINOPHEN 325 MG TAB PO PRN (08:50)
[2021-05-09] MEDS: FAMOTIDINE 20 MG in SYRINGE 3 ML IV SCH (09:05)
[2021-05-09] MEDS: ENOXAPARIN INJ 40 MG/0.4 ML SYR SQ SCH (09:05)
--- NOTE | 2021-05-09 09:13 | Surgery Progress Note ---
Date of Service May 09, 2021 Assessment & Plan (1) Acute appendicitis with localized peritonitis without abscess: (2) Rigors: (3) Fever and chills: Plan: POD # 2 s/p laparoscopic appendectomy -Still febrile T max of 38.1 this morning - blood cultures so far negative to date and urine cultures pending, UA wnl - Abdominal pain controlled, abdomen soft, + flatus - leukocytosis resolved Plan: Continue IV Zosyn Continue po pain management continue regular diet up to chair and ambulate today CXR due to transient hypoxia and continued fevers SCDs and lovenox for DVT prophylaxis Incentive spirometry Dr. Rosenthal has seen and examined pt, agrees with above. Admission and Anticipated Discharge Date Admission Date: May 07, 2021 Subjective Feeling better today still having fever but seems to be decreasing No nausea no vomiting Pain is controlled mostly in the left lower quadrant took Tylenol last night Ambulated yesterday couple times has not done so far today Urinating without difficulty No chest pain or shortness of breath but required oxygen earlier this morning. Physical Exam Constitutional: WD/WN, vitals as above no acute distress and not ill appearing Neck: normal visual inspection and trachea midline Respiratory: normal respiratory effort; no respiratory distress and no labored breathing Gastrointestinal (Abdomen): Inspection/Auscultation: abdomen normal to inspection and + abdominal surgical incision (Clean, dry, intact with Dermabond); abdomen not distended Percussion/Palpation: + abdomen tender (Left lower quadrant), + guarding (Voluntary left lower quadrant) and abdomen soft; abdomen not rigid Skin: no rashes, warm and dry Psychiatric: A+Ox3, euthymic affect Results & Data ([facility]) Vital Signs (Past 12 Hours) Vital Signs Temp Pulse Resp BP Pulse Ox Pulse Ox 05/09/21 07:39 38.1 C H 81 18 119/74 100 05/09/21 03:00 94 05/08/21 23:05 94 05/08/21 23:00 37.3 C 89 16 124/73 88 L Laboratory Results 05/09/21 05/09/21 05/08/21 Range/Units 06:38 06:38 08:17 WBC 4.09 L (4.8-10.8) K/uL RBC 4.62 L (4.7-6.1) M/uL Hgb 13.8 L (14.0-18.0) g/dL Hct 41.1 L (42-52) % MCV 89.0 (80-100) fL MCH 29.9 (25-34) pg MCHC 33.6 (32-36) g/dL RDW Std Deviation 44.2 (36.4-46.3) fL RDW Coeff of Terrence 13.4 (11.5-14.5) % Plt Count 107 L (130-400) K/uL MPV 10.3 (7.4-10.4) fL Immature Gran % (Auto) 0.0 % Neut % (Auto) 75.6 % Lymph % (Auto) 11.7 % [place] % (Auto) 8.8 % Eos % (Auto) 3.7 % Baso % (Auto) 0.2 % Neut # (Auto) 3.09 (1.4-6.5) K/uL Lymph # (Auto) 0.48 L (1.2-3.4) K/uL [place] # (Auto) 0.36 (0.11-0.59) K/uL Eos # (Auto) 0.15 (0-0.5) K/uL Baso # (Auto) 0.01 (0-0.2) K/uL Immature Gran # (Auto) 0.00 (0.00-0.02) K/uL Sodium 136 137 (136-145) mmol/L Potassium 3.8 4.1 (3.5-5.1) mmol/L Chloride 105 105 (98-107) mmol/L Carbon Dioxide 24 26 (21-32) mmol/L Anion Gap 7 6 (3-11) BUN 11 16 (6-23) mg/dl Creatinine 1.20 1.15 (0.6-1.4) mg/dl Est Cr Clr Drug Dosing 77.7 81.1 ml/min Est GFR ( Amer) 77.9 82.0 ml/min Est GFR (Non-Af Amer) 67.2 70.7 ml/min BUN/Creatinine Ratio 9.2 L 13.9 (10-20) Glucose 109 H 110 H (70-99(Fasting)) mg/dl Calcium 7.5 L 7.5 L (8.5-10.1) mg/dl Total Bilirubin 1.5 H 1.5 H D (0.2-1.0) mg/dl AST 160 H 261 H (13-39) U/L ALT 230 H 237 H (7-52) U/L Alkaline Phosphatase 99 80 (34-104) U/L Total Protein 5.8 L 5.7 L D (6.0-8.3) gm/dl Albumin 3.3 L 3.3 L (3.4-5.0) gm/dl Globulin 2.5 2.4 L (2.5-4.0) gm/dl Albumin/Globulin Ratio 1.3 1.4 (0.9-2) Microbiology 05/07/21 23:17 Aerobic Blood Culture - Preliminary Blood No growth in Aerobic bottle after 24 hours. Anaerobic Blood Culture - Preliminary No growth in Anaerobic bottle after 24 hours. 05/07/21 23:17 Aerobic Blood Culture - Preliminary Blood No growth in Aerobic bottle after 24 hours. Anaerobic Blood Culture - Preliminary No growth in Anaerobic bottle after 24 hours.
--- NOTE | 2021-05-09 10:15 | XRay Report ---
XR chest 1V portable HISTORY: POD # 2 lap appy, transient hypoxia, fever COMPARISON: None. FINDINGS: Cardiac silhouette is top normal in size. No evidence for pulmonary edema. Punctate calcifi ed granuloma seen within the right lung. Suspect a trace left pleural effusion and left basilar subse gmental atelectasis. Otherwise, no focal lung consolidations to suggest pneumonia. Degenerative camejo es within the shoulders. No pneumothorax. IMPRESSION: Suspect a trace left pleural effusion and left basilar subsegmental atelectasis. ACT 112: Negative or not required by law. Electronically signed by: Byron Asencio M.D. 05/09/2021 10:14 AM
--- NOTE | 2021-05-15 09:14 | Discharge Summary ---
Date of Service May 15, 2021 Admission HPI Per Admitting Provider 56-year-old gentleman presents with 1 day history of right lower quadrant pain. He developed a fever at approximately 12:00 this afternoon and right lower quadrant pain. He denies nausea or vomiting. He has had alternating constipation and diarrhea. He denies chest pain or shortness of breath. He last ate earlier this morning. He has never had surgery. CT scan demonstrates acute appendicitis. Principal Diagnosis acute appendicitis Discharge Data Allergies Allergy/AdvReac Type Severity Reaction Status Date / Time lactose AdvReac Gastrointestinal Verified 05/06/21 21:59 Upset Consultations 05/06/21 21:29 ED Decision to Admit Stat Procedures Performed Operation Date: 05/07/21 00:30 Actual Procedures p Laparoscopic Appendectomy - Jv Rosenthal MD Ordered Studies 05/06/21 20:25 CT abd pelvis IV con only Stat Hospital Course (1) Acute appendicitis with localized peritonitis without abscess: 56-year-old gentleman presented to the hospital with acute appendicitis. He was taken to the operating room and underwent laparoscopic appendectomy, the details of which are dictated in a separate operative note. Postoperatively he did have some bacteremia and fevers/ rigors. He was maintained on IV antibiotics until these resolved. His diet was advanced as tolerated. He is encouraged to ambulate and use his incentive spirometer for aggressive pulmonary toilet. DVT prophylaxis with SCD boots and subcutaneous Lovenox. Pain was controlled with IV and oral pain medications. By the day of discharge, his fevers and rigors had resolved, he was tolerating a regular diet, and was not requiring any IV pain medications. He was discharged home with a 5 day course of Augmentin. He will return to clinic in 2 weeks for follow-up. Total Time Total Time Spent Total Time Spent (In Minutes): 30 minutes Discharge Plan Discharge Items Patient Disposition: Home - Self-Care Reason For Visit: ACCUTE APPENDICITIS Discharge Diagnosis: Acute Appendicitis Activity: Per Instructions section Non-emergency contact: Surgeon Call non-emergency contact if: you have any medication questions, your pain is not controlled, your pain is worsening, your pain is concerning for you, you have a fever, your temperature is above 101, your wound has increased redness, your wound has increased drainage and your wound pain has increased Follow-up/Referrals: Jv Rosenthal MD [Physician] - 05/22/21 3:15 pm (Schedule with the clinic in 2 weeks for follow-up) PCP,NO [Primary Care Provider] - Diet: Regular Addtl Attending Provider Instructions: Post-Surgical ~Discharge Instructions Activity Recommendations: - lifting limitation: (10 pounds for 2 weeks), - exercise/sex/sports limit: (nonstrenuous for 2 weeks), - driving or machine use limit: (none for 1 week or no longer having pain or taking pain medication), - Shower/bathe limit: (may shower beginning tomorrow) Diet: - Resume previous diet SPECIAL CARE INSTRUCTIONS: - May shower in 24 hours. Let water run over area and pat dry. - Surgical glue will fall off on its own, do not pick at it. - Call the surgeon's office with any questions or concerns - - (ex. temperature higher than 101 degrees F, excessive bleeding or pain). MEDICATIONS: - Resume previous medications unless instructed otherwise by your surgeon. - You can alternate extra strength Tylenol and Ibuprofen as needed for mild to moderate pain - Tylenol 650 mg every 6 hours as needed - Ibuprofen 600 mg every 6 hours as needed (take with food) - Recommend daily stool softener (Colace) while taking narcotic pain medication to prevent constipation or straining. FOLLOW UP VISIT: - If not already scheduled, please call the office to schedule a two week follow-up appointment. Office number Pending Studies at Discharge: Yes (appendix pathology, will be reviewed at follow up visit) Stand-Alone Forms: My [employer], Smoking Cessation Medications and DC Order Prescriptions: New amoxicillin-pot clavulanate 875-125 mg tablet 1 tab PO BID Qty: 10 RF: 0 Continued multivitamin Tablet 1 tab PO DAILY RF: 0 lactase 3,000 unit Tablet 3,000 unit PO AC PRN (Reason: Lactose intolerant) RF: 0 Discharge Orders: Discharge Order (Routine); Ordered 05/09/21 Ordered By: Jv Garcia/Other Patient Handouts: After an Appendectomy Admission Data Admit Date/Time: 05/07/21 02:45 Attending Provider: Jv Rosenthal Admit Provider: Jv Rosenthal Primary Care Provider: PCP,NO Other Providers: Jv Rosenthal Other Interventions: Discharge Summary Assessment (RN) Last Done: 05/09/21 16:36
== END 2021-05-09 18:10 | disposition home or self-care (01) ==
LOC: ED 18:38 → 3N 05-07 01:01 → OR 05-07 01:01